=== PATIENT | female | born 1990 | race Caucasian/White ===

== ENCOUNTER → 2024-10-03 15:09 | Outpatient (REF) | payer OTHER, SELFPAY ==
--- NOTE | 2024-10-03 15:11 | CA_ITS ---
Transthoracic Echocardiogram Patient (Last, First, Middle): Chandu Jackson, Gender: Female Date of : 1990 Age: 34 Procedure Date: 10/03/2024 Procedure Type: Transthoracic Echocardiogram Location: OP Height: 165.1 cm Weight: 75.75 kg BSA: 1.83 m2 Heart Rate: bpm BP: 116 / 80 mmHg Core Fitter: Referring MD: Dante King MD Symptoms: I95.1 - Orthostatic hypotension Study Quality: Fair ECG Rhythm: Sinus Conclusions: - Normal left ventricular size, thickness, systolic function, and wall motion. The visually estimated ejection fraction is between 55-60%. Diastolic function is normal for age. - Normal right ventricular cavity size and systolic function. Findings Left Ventricle Normal left ventricular size, thickness, systolic function, and wall motion. The visually estimated ejection fraction is between 55-60%. Diastolic function is normal for age. Right Ventricle Normal right ventricular cavity size and systolic function. Atria The left atrium is normal in size. Aortic Valve Normal aortic valve structure and function. There is no aortic valve stenosis. There is no aortic valve regurgitation. Mitral Valve The mitral valve appears normal. There is no mitral valve regurgitation. There is no mitral valve stenosis. Pulmonic Valve The pulmonic valve is likely normal. Tricuspid Valve Normal tricuspid valve structure. There is no tricuspid valve regurgitation. Normal right atrial pressure. There is no evidence of pulmonary hypertension. Great Vessels All visible segments of the aorta are normal in size. The visualized portions of the pulmonary artery and branches are normal. Venous The inferior vena cava is normal in size and collapses greater than 50% with inspiration. Pericardium/Pleural There is no evidence of pericardial effusion. Prior Study Comparison No prior study available for comparison. Measurements 2D Linear Measurements IVSd: 0.84 0.6-0.9/0.6-1.0 cm LVIDd: 4.47 3.9-5.3/4.2-5.9 cm LVIDd Index: 2.44 2.4-3.2/2.2-3.1 cm/m2 LVIDs: 2.78 2.0-3.6 cm LVPWd: 0.84 0.7-1.1 cm Ao Root: 2.10 2.1-3.5 cm LA Diam: 2.70 2.7-3.8/3.0-4.0 cm LAIDs Index: 1.48 1.5-2.3 cm/m2 LV Mass: 149.26 67-162/88-224 g LV Mass Index: 81.56 43-95/49-115 g/m2 LVOT Diam: 1.90 3.0+(-)1.3 cm 2D Systolic Function EF 4C: 59.30 >55% EF 2C: 59.30 >55% EF BiP: 58.40 >55% Mitral Valve MV Pk E: 1.06 MV PK A: 0.69 MV Decel Time: 165.00 E/A: 1.50 E'Lateral: 17.70 E'Medial: 13.20 E/E' Med: 8.00 E/E' Lat: 6.00 PHT: 48.00 MVA PHT: 4.58 Decel Toole: 6.42 Aortic Valve AoV Pk Jevon: 1.74 AoV Pk Grad: 12.00 LVOT LVOT Pk Jeovn: 1.07 LVOT Mn Jevon: 0.77 LVOT VTI: 0.26 LVOT Pk Grad: 5.00 LVOT Mn Grad: 3.00 LVOT Diam: 1.90 LVOT Area: 2.84 Diastolic Function MV Pk E: 1.06 MV Pk A: 0.69 E/A: 1.50 E'Medial: 13.20 E/E' Med: 8.00 E' Laterial: 17.70 E/E' Lat: 6.00 Right Ventricle TAPSE (mm): 22.00 Tricuspid Valve TR Pk Jevon: 2.00 TR Pk Grad: 16.00 RA Press: 3.00 RVSP: 19.00 Great Vessels Aorta Ao Root-2D: 2.10 2.0-3.7 cm Ao Asc: 2.10 2.1-3.4 cm Pulmonary Valve PV Pk Jevon: 1.12 Peak PV Grad: 5.00 Updated in Other Vendor System with Status of Final Mynor Rodríguez MD electronically signed on 10/04/2024 6:15:26 PM with status of Final
--- OUTSIDE RECORDS SUMMARY | 2024-10-08 10:47 | XMS_ITS | Data Portability ---
Author Organization [facility] [address] Address [address] [place] [address] Assessment Encounter Date Assessment Date Assessment LastModified by Organization Details LastModified Time 04/03/2024 04/03/2024 Home Care After 24 to 48 hours, gently wash the wound with clean water 2 times a day. Do not scrub or soak the wound. Don't use hydrogen peroxide or alcohol, which can slow healing. You may cover the wound with a thin layer of antibiotic ointment Apply more ointment and replace the bandage as needed After you shower, gently dry the wound with a clean towel Take an [id number] pain medicine, such as acetaminophen (Tylenol), ibuprofen (Advil, Motrin), or naproxen (Aleve). Read and follow all instructions on the label. If your bite puts you at risk for rabies, you will get a series of shots over the next few weeks to prevent rabies. Your doctor will tell you when to get the shots. It is very important that you get the full cycle of shots. Follow your doctor's instructions exactly. You may need a tetanus shot if you have not received one in the last 5 years. If your doctor prescribed antibiotics, take them as directed. Do not stop taking them just because you feel better. You need to take the full course of antibiotics. Call your doctor now or seek immediate medical care if: The skin near the bite turns cold or pale or it changes color. You lose feeling in the area near the bite, or it feels numb or tingly. You have trouble moving a limb near the bite. You have symptoms of infection, such as: Increased pain, swelling, warmth, or redness near the wound. Red streaks leading from the wound. Pus draining from the wound. A fever. Blood soaks through the bandage. Oozing small amounts of blood is normal. Your pain is getting worse. [email or web address] Not available 04/03/2024 12:26:21 Plan of Treatment Reminders Order Date Submit Date Provider Last Modified By Organization Details Last Modified Time Details Appointments None recorded. Lab None recorded. Referral None recorded. Procedures None recorded. Surgeries None recorded. Imaging None recorded. Medication Orders amoxicillin 875 mg-potassiu m clavulanate 125 mg tablet 2023 024 MIKE [id number], [address] [place], [address], 12:25:41 Patient TargetsNo targets recorded. Patient Instructions Encounter Date Encounter Id Patient Instructions Last Modified By Organization Details Last Modified Time 04/03/2024 [id number] animal bites: care instructions [email or web address] Not available 04/03/2024 12:25:39 wound care* MIKE Not available 03/2024 15:48:13 Discharge Instructions - Wound Care - Wash the wound gently with soap and warm water once daily. Otherwise keep wound clean, dry and covered with a dressing. - Do not immerse in water, and do not use alcohol or peroxide to clean. Do not use iodine or mercurochrome. - Elevate to decrease pain and improve healing. - Minimize use of affected body part. - Return here or see your doctor for any sign of infection, including redness, swelling, pus or increased pain. - Return for wound check in 2 or 3 days. - Return to have stiches removed in {{5days 7 days 10 days* 2 weeks}}. General recommendations: Scalp- 7 days Face- 5 day over joints - 14 days Hands/feet- 12 days Other areas - 10 days - If you received a tetanus shot the site may become sore and you may develop a low-grade fever. Take Tylenol if you have fever or pain. Return for a more severe reaction. - See your doctor or return here if not improving in {{1 2 3* 4 5 6 7 8 9 10 11 12 13 1 4}} days. [email or web address] Not available 04/03/2024 11:59:18 Reason for Referral None Reported. Results Created Date Observation Date Name Description Value Unit Range Abnormal Flag Note LastModifiedBy Organization Detail LastModifiedTime Result Notes None recorded. Problems Name Problem SNOMED Code Status Onset Date Resolution Date Notes Provider Name and Address Organization Details Recorded Time Attention deficit hyperactivity disorder 230535416 Active Nini oquendo [place] - [facility] 4 12:08:57 Anxiety 63169460 Active Nini oquendo [place] - [facility] 4 12:09:05 Dog bite of hand 216956176 Active 2023 NURIA STARKS NP [address] [place], [place], [address], [place] - [facility] 4 12:23:42 Problem Notes None recorded. Procedures Surgical History Date Name Laterality Status Provider Name and Address Organization Details Recorded Time 04/03/2024 Wound Care UC completed Nini MERAZ - [facility] 04/03/2024 11:59:18 Imaging Results None recorded. Procedure Notes None recorded. Medical Equipment None Reported. Allergies No known drug allergies Medications Name Sig Start Date Stop Date Status Note LastModified by Organization Details LastModified Time citalopram 10 mg tablet TAKE 1 TABLET BY MOUTH EVERY DAY IN THE MORNING active Not Available Not Available No t Available methylpheni date 5 mg tablet TAKE 1 TABLET BY MOUTH TWICE A DAY NEEDED FOR 14 DAYS 04/03 completed Not Available Not Available Not Available dextroamphe tamine-amph etamine ER 20 mg 24hr capsule,ext end release TAKE 1 CAPSULE BY MOUTH IN THE MORNING DO NOT CRUSH OR CHEW 04/03 completed Not Available Not Available Not Available dextroamphe tamine-amph etamine 20 mg tablet TAKE 1 TABLET BY MOUTH EVERY DAY active Not Available Not Available No t Available triamcinolo ne acetonide 55 mcg nasal spray aerosol SPRAY 2 SPRAYS INTO EACH NOSTRIL EVERY DAY 04/03 completed Not Available Not Available Not Available omeprazole 20 mg capsule,del ayed release TAKE 1 CAPSULE BY MOUTH EVERY DAY active Not Available Not Available No t Available montelukast 10 mg tablet TAKE 1 TABLET BY MOUTH EVERY DAY active Not Available Not Available No t Available azelastine 137 mcg (0.1 %) nasal spray INHALE 2 SPRAYS EACH NOSTRIL TWICE DAILY 04/03 completed Not Available Not Available Not Available ketoconazol e 2 % topical cream APPLY TOPICALLY IN THE MORNING 04/03 completed Not Available Not Available Not Available clobetasol 0.05 % scalp solution PLEASE SEE ATTACHED FOR DETAILED DIRECTION S 04/03 completed Not Available Not Available Not Available dextroamphe tamine-amph etamine 5 mg tablet TAKE 1 TABLET BY MOUTH TWICE A DAY NEEDED FOR 14 DAYS 04/03 completed Not Available Not Available Not Available naproxen 500 mg tablet TAKE 1 TABLET BY MOUTH EVERY 12 HOURS 04/03 completed Not Available Not Available Not Available amoxicillin 875 mg-potassiu m clavulanate 125 mg tablet Take 1 tablet every 12 hours by oral route for 7 days. 2023 active Not Available Not Available Not Avai lable Ventolin HFA 90 mcg/actuati on aerosol inhaler INHALE 2 PUFFS BY MOUTH EVERY 4-6 HOURS NEEDED FOR WHEEZING active Not Available Not Available No t Available naproxen 375 mg tablet,alfredo yed release TAKE 1 TABLET TWICE A DAY BY ORAL ROUTE AFTER MEAL(S) FOR 14 DAYS. 04/03 completed Not Available Not Available Not Available dextroamphe tamine-amph etamine ER 25 mg 24hr capsule,ext end release TAKE 1 CAPSULE BY MOUTH EVERY DAY DO NOT CRUSH OR CHEW active Not Available Not Available No t Available cyclobenzap rine 5 mg tablet TAKE 1 TABLET 3 TIMES A DAY BY ORAL ROUTE NEEDED. active Not Available Not Available No t Available 11/17 (21) 1 mg-20 mcg tablet TAKE 1 TABLET BY MOUTH EVERY DAY IN THE MORNING 04/03 completed Not Available Not Available Not Available diclofenac 1 % topical gel APPLY 2 GMS EVERY 6 HOURS NEEDED FOR PAIN active Not Available Not Available No t Available Breo Ellipta 200 mcg-25 mcg/dose powder for inhalation INHALE 1 PUFF DAILY active Not Available Not Available No t Available Vitals Date Recorded Body height Body mass index (BMI) Body weight Oxygen saturation Oxygen saturation in Arterial blood by Pulse oximetry Heart rate Respiratory rate Body temperature Systolic blood pressure Diastolic blood pressure Provider Name and Address Organization Details Last Updated DateTime 4 165.1 cm 28.3 kg/m2 71213.7 g 97 % 97 % 81 /min 18 /min 98.1 [degF] 112 mm[Hg] 81 mm[Hg] Nini Bernard Murillo [facility] 12:13:35 Social History Question Answer Notes LastModified by Organizat ion Details LastModified Time Tobacco Smoking Status Never Smoker [facility] 04/03/2024 12:10:45 What Is Your Level Of Alcohol Consumption? None [email or web address] Information not available 04/03/2024 Have You Had A Flu Shot This Season? Yes [email or web address] Information not available 04/03/2024 What Was The Date Of Your Most Recent Tobacco Screening? 04/03/2024 [email or web address] Information not available 04/03/2024 Do You Use Any Illicit Or Recreational Drugs? No [email or web address] Information not available 04/03/2024 Do You Or Have You Ever Used Any Other Forms Of Tobacco Or Nicotine? No [email or web address] Information not available 04/03/2024 Sex: Unknown Functional Status None recorded. Mental Status None recorded. Family History Relationship Description Onset Age of this Age Resolved Age Notes LastModified by Organization Details LastModified Time Father No current problems or disability [email or web address] Not available 03/2024 12:09:57 Mother No current problems or disability [email or web address] Not available 03/2024 12:09:57 Medical History No medical history recorded. Gynecological History Statement/Question Response Date of LMP 03/19/2024 Is there any chance of ? No LMP Definite Obstetrics History GPAL:G 0 P 0 0 0 0 Immunizations Vaccine Type Date Status Note Provider Nam e and Address Organization Details Recorded Time Tdap 04/03/2024 completed [facility] 04/03/2024 12:48:16 Past Encounters Encounter ID Performer Location Encounter Start Date Encounter Closed Date Diagnosis/Indication Diagnosis SNOMED-CT Code Diagnosis ICD10 Code [id number] [address] [facility] [place] [address] 10/31/2021 17:45:17 10/31/2021 18:28:21 [id number] [address] [facility] [place] [id number] 10/31/2021 10:00:26 10/31/2021 17:39:15 [id number] [place] [address] [place] [address] 04/03/2024 11:42:34 04/03/2024 12:37:19 Dog bite of hand 641664446 S61.451A Health Concerns Section Related Observation LastModified by Organization Detai ls LastModified Time None Recorded Concern Status LastModified by Organization Details LastModified Time None Recorded Advance Directives Directive None Recorded Payers Encounter Date Sequence Insurance Name Policy Number Policy Mann Covered Member ID Mann Member ID Guarantor Name 10/31/2021 1 [facility] [id number] Lissamar Manuel [id number] Lissamar Manuel 10/31/2021 1 [facility] [id number] 1 Lissamar Manuel [id number] Lissamar Manuel 04/03/2024 1 [facility] (O) [id number] Lissamar Manuel [id number] Lissamar Manuel Notes Date Note Type Note Provider Name and Address Organization Details Recorded Time 04/03/2024 text/html Animal BiteReported bypatient.Onset of exposure:2 days ago Type of Exposure:dog bite; pt reports dog bite to bilateral fingers two days ago Pt has bite marbin to right middle finger left ring finger and index finger Location:right; left Context:animal: county - , vaccinated Associated Symptoms:wound drainage; right middle finger has a small amount of purulane drainage, bite is small NURIA STARKS NP [address] [facility] [place], [address], [place] - [facility] 04/03/2024 12:45:21 OBGyn Episode No OBEpisode recorded.
== END ==
LOC: HO.CARD 15:09
PROVIDERS: Visit Provider Internal Medicine
DX: I95.1 Orthostatic hypotension (principal)
CPT/HCPCS: 93306

== ENCOUNTER 2025-06-23 13:32 | Outpatient (REF) | payer OTHER, SELFPAY ==
[2025-06-25 04:44] LABS: Bacterial Vaginosis PCR NEGATIVE (Negative); Candida Group PCR NOT DETECTED (Not Detect); Candida glab krusei PCR NOT DETECTED (Not Detect); Trichomonas vaginalis PCR NOT DETECTED (Not Detect)
[2025-06-25 05:15] LABS: CT PCR NOT DETECTED (Not Detect.); NG PCR NOT DETECTED (Not Detect.)
== END 2025-06-23 13:33 | disposition home or self-care (01) ==
LOC: HO.HHCLNP 13:32
PROVIDERS: Visit Provider Nurse Practitioner Family
DX: N89.8 Other specified noninflammatory disorders of vagina (principal)
CPT/HCPCS: 81515; 87491; 87591